=== PATIENT | male | born 1955 | race Two or more races ===

== ENCOUNTER 2017-07-01 05:54 | Day surgery (SDC) | END 2017-07-01 09:46 | disposition home or self-care (01) ==

== ENCOUNTER 2018-12-15 06:24 | Day surgery (SDC) | payer OTHER ==
[~2018-12-15] VITALS: Ht 157.5 cm; Wt 90.0 kg
[2018-12-15] VITALS (11 sets, daily range): BP systolic 115–155; BP diastolic 52–82; PULSE 48–59; RESP 16–20; Ht 157.5 cm; Wt 90.0 kg
[~2018-12-15 06:24] MED LIST: BUPIVACAINE 0.25% (MPF) 30 ML INJ INJ ONE; FER325 PO; IBUP-1542 PO; METF-849 PO; PRAV10TA43 PO
[2018-12-15] MEDS ORDERED: CEFAZOLIN 2 GM/50 ML (PMX) 50 ML IVPB ONE (06:30)
[2018-12-15] MEDS ORDERED: SOD CHLORIDE 0.9% 1,000 ML IV ONE (06:30)
[2018-12-15] MEDS ORDERED: IBUP800T48 PO (08:00)
[2018-12-15] MEDS ORDERED: ATOR40TA68 PO (08:00)
[2018-12-15] MEDS ORDERED: METF500T24 PO (08:01)
[2018-12-15] MEDS ORDERED: OMEP40CA6 PO (08:01)
[2018-12-15] MEDS ORDERED: BUPIVACAINE 0.25% (MPF) 30 ML INJ ONE (08:54)
--- NOTE | 2018-12-15 08:59 | PREAC ---
Date/Time of Note Date/Time of Note DATE: 12/15/18 TIME: 08:58 Anesthesia Eval and Record Evaluation Time Pre-Procedure Interview DATE: 12/15/18 TIME: 08:58 Age 63 Sex male NPO: 8 hrs Preoperative diagnosis neck mass Planned procedure excision Past Medical History Past Medical History: Includes Cardio: HTN, Dyslipidemia Endo: Diabetes Surgery & Anesthesia Issues No known issue Meds Anticoagulation: No Beta Charlene within 24 hr: No Reason Beta Charlene not given: Pt. not on B-Charlene Reported Medications Metformin Hcl* (Metformin Hcl*) 500 Mg Tablet, 500 MG PO WITH BREAKFAST DINNE, #60 TAB 12/15/18 Omeprazole* (Omeprazole*) 40 Mg Capsule.dr, 40 MG PO DAILY, #30 CAP 12/15/18 Atorvastatin* (Atorvastatin*) 40 Mg Tablet, 40 MG PO QHS, #30 TAB 12/15/18 Ibuprofen* (Motrin*) 800 Mg Tab, 800 MG PO BID PRN for PAIN, TAB 12/15/18 Discontinued Reported Medications Ibuprofen* (Ibuprofen*) 600 Mg Tablet, 600 MG PO Q8, TAB 07/01/17 Pravastatin Sodium* (Pravastatin Sodium*) 10 Mg Tablet, 10 MG PO HS, TAB 07/01/17 Ferrous Sulfate* (Ferrous Sulfate*) 325 Mg Tabec, 325 MG PO DAILY, TAB 07/01/17 Metformin* (Glucophage*) 500 Mg Tab, 500 MG PO BID, TAB 03/16/15 Current Medications Sodium Chloride 1,000 ml @ 75 mls/hr [id number] ONCE IV ; Start 12/15/18 at 06:30; Stop 12/15/18 at 19:49 Meds reviewed: Yes Allergies Coded Allergies: No Known Allergy (Unverified , 12/15/18) Allergies Reviewed: Yes Labs/Studies Labs Reviewed: Reviewed by anesthesiologist test: N/A Pre-procedure Exam Last vitals Vital Signs Date Temp Pulse Resp B/P (MAP) Pulse Ox O2 O2 Flow FiO2 Time Delivery Rate 12/15/18 97.9 55 16 118/58 97 Room Air 08:04 (78) Airway: Adequate mouth opening, Adequate thyromental dist Mallampati: Mallampati III Teeth: Abnormal (front tooth upper is almost off, patient ok with removal ) Lung: Normal Heart: Normal ASA Physical Status ASA physical status: 3 Emergency: None Pre-operative Attestations Prior to commencing anesthesia and surgery, the patient was re-evaluated, there was verification of: *The patient's identity *The results of appropriate recent lab work and preoperative vital signs *The above evaluation not changing prior to induction *Anesthetic plan, risk benefits, alternative and complications discussed with patient/family; questions answered; patient/family understands, accepts and wishes to proceed. JAMIE MEI DO Dec 15, 2018 08:59
[2018-12-15] MEDS ORDERED: hydrALAzine 20 MG INJ IV PRN (09:00)
[2018-12-15] MEDS ORDERED: OXYCODONE/ACETAMINOPHEN (5/325) TAB PO PRN (09:00)
[2018-12-15] MEDS ORDERED: LABETALOL HCL 20MG INJ IV PRN (09:00)
[2018-12-15] MEDS ORDERED: ONDANSETRON 4 MG INJ IV PRN (09:00)
[2018-12-15] MEDS ORDERED: HYDROmorphONE 1 MG/5 ML IV SYRINGE IV PRN ×2 (09:00)
[2018-12-15] MEDS ORDERED: LIDOCAINE 2% (SDV) 5 ML INJ ONE (09:27)
[2018-12-15] MEDS ORDERED: PROPOFOL 20 ML ONE (09:27)
[2018-12-15] MEDS ORDERED: FENTAnyl 50 MCG/ML VIAL ONE (09:28)
[2018-12-15] MEDS ORDERED: MIDAZOLAM 1 MG/ML 2 ML INJ ONE (09:28)
[2018-12-15] MEDS ORDERED: CEFAZOLIN 1 GM INJ ONE (09:36)
--- NOTE | 2018-12-15 10:11 | PAC ---
Date/Time of Note Date/Time of Note DATE: 12/15/18 TIME: 10:11 Post-Anesthesia Notes Post-Anesthesia Note Last documented vital signs Vital Signs Date Temp Pulse Resp B/P (MAP) Pulse Ox O2 O2 Flow FiO2 Time Delivery Rate 12/15/18 98 59 18 105/65 97 Room Air 1011 Activity: WNL Respiratory function: WNL Cardiovascular function: WNL Mental status: Baseline Pain reasonably controlled: Yes Hydration appropriate: Yes Nausea/Vomiting absent: Yes JAMIE MEI DO Dec 15, 2018 10:11
--- NOTE | 2018-12-15 10:13 | OPR ---
Date/Time of Note Date/Time of Note DATE: 12/15/18 TIME: 10:09 Operative Report Procedure Date: Dec 15, 2018 Preoperative Diagnosis right neck mass Postoperative Diagnosis same Operation/Procedure Performed 1. excision of right neck mass 3 cm mass 3 cm incision 2. localized adjacent tissue transfer with the use of skin flaps 6 sq cm defect of right neck 3. therapeutic injection of subcutaneous local anesthesia Surgeon see signature line Bus Mechanic none Anesthesia Type: general Estimated Blood Loss: 0 - 10 ml's Transfusion none Specimen right neck mass Grafts/Implants none Complications none Pt Condition Post Procedure: stable Indications This is a 63-year-old male with a right neck mass. He request surgical excision. Risks alternatives benefits and percent were discussed the patient. Patient expressed understanding consents to the operation. Procedure Description Patient is taken to the OR and prepped and draped in usual sterile fashion. Surgical time was performed. IV antibiotics given. Elliptical incision was made over the right neck mass with a 15 blade. Dissection with cautery skin onto the mass. The mass circumferentially excised. Hemostasis established. Due to tissue defect localized adjacent tissue transfer with these of skin flaps was performed. Multilayer closed with interrupted 0 Vicryl and running 4-0 Monocryl. Therapeutic contains local anesthesia was injected at the incision site. Dry dressings were applied. Stephanie IBARRA Dec 15, 2018 10:13
[2018-12-15] MEDS ORDERED: HYDROCODONE/APAP (5/325) TAB PO ONE (10:30)
== END 2018-12-15 17:45 | disposition home or self-care (01) ==
LOC: SDS 06:24
PROVIDERS: ATTEND Surgery
DX: L72.0 Epidermal cyst (principal); E11.9 Type 2 diabetes mellitus without complications; I10 Essential (primary) hypertension; E78.5 Hyperlipidemia, unspecified; Z79.84 Long term (current) use of oral hypoglycemic drugs
CPT/HCPCS: 14040; 82962; 88307; J0690; J2250; J3010; J7030; Z7610